=== PATIENT | female | born 1965 | race African-American/Black ===

== ENCOUNTER 2018-05-27 17:09 | Emergency (ER) | payer BC ==
[~2018-05-27] VITALS: Ht 162.6 cm; Wt 62.1 kg
[2018-05-27 17:52] LABS: HEMATOCRIT 41.7 % (36.0-46.0); HEMOGLOBIN 13.8 G/DL (11.9-15.5); MCH 26.5 PG (29.0-34.0); MCHC 33.1 G/DL (30.0-36.0); PLATELET COUNT 300 K/uL (156-360); RBC DIS.WIDTH-CV 14.1 % (11.8-14.6); RBC DIS.WIDTH-SD 41.1 % (39-53); RED BLOOD COUNT 5.21 M/uL (3.80-5.20); WHITE BLOOD COUNT 5.7 K/uL (4.1-10.2)
[2018-05-27 18:04] LABS: ALBUMIN 5.1 g/dL (3.2-4.8)
[2018-05-27 18:05] LABS: CHLORIDE 105 mEq/L (99-109); POTASSIUM 3.5 mEq/L (3.7-5.4); SODIUM 139 mEq/L (136-147)
[2018-05-27 18:07] LABS: GLUCOSE 125 mg/dL (70-99); TOTAL PROTEIN 8.4 g/dL (6.4-8.3)
[2018-05-27 18:09] LABS: TOTAL BILIRUBIN 0.7 mg/dL (0.0-1.0)
[2018-05-27 18:10] LABS: ALKALINE PHOSPHATASE 106 IU/L (3-129)
[2018-05-27 18:11] LABS: CREATININE 0.9 mg/dL (0.6-1.3); GFR ESTIMATE (CALCULATED) > 59 mL/min/
[2018-05-27 18:12] LABS: AST (GOT) 28 IU/L (2-34); UREA NITROGEN (BUN) 17 mg/dL (9-23)
[2018-05-27 18:13] LABS: ALT (GPT) 24 IU/L (3-49)
[2018-05-27 18:14] LABS: LIPASE 13 U/L (1.0-51.0)
[2018-05-27] MEDS ORDERED: ZOFRAN ODT4 MG PO (18:59)
[2018-05-27] MEDS ORDERED: LEVSIN-SL0.125 MG SL (18:59)
[2018-05-27 19:18] LABS: APPEARANCE CLEAR ((CLEAR)); BILIRUBIN NEGATIVE; BLOOD NEGATIVE; COLOR STRAW ((YELLOW)); GLUCOSE (STRIP) NEGATIVE; KETONES NEGATIVE; LEUKOCYTES NEGATIVE; NITRITE NEGATIVE; PROTEIN (STRIP) NEGATIVE; SPECIFIC GRAVITY 1.009 (1.000-1.030); UROBILINOGEN 0.2 MG/DL (0.2-1.0)
[2018-05-27 21:42] LABS: C DIFF TOXIN ND (NEGATIVE)
[2018-05-27 21:48] VITALS: BP 128/68
== END 2018-05-27 21:48 | disposition home or self-care (01) ==
LOC: EME 17:09 → RME 17:09
PROVIDERS: Nurse Practitioner Family
DX: R11.2 Nausea with vomiting, unspecified (principal); R19.7 Diarrhea, unspecified; E86.0 Dehydration; I10 Essential (primary) hypertension; Z87.891 Personal history of nicotine dependence
CPT/HCPCS: 80053; 81003; 83605; 83690; 85027; 87177; 87493; 87506; 99281; 99285; J1885; J2405; J7030